=== PATIENT | female | born 2000 | race Caucasian/White ===

== ENCOUNTER 2019-07-19 13:26 | Emergency (ER) | payer OTHER, SELFPAY ==
[2019-07-19 13:42] VITALS: BP 124/83; PULSE 73; RESP 18; TEMP 36.6; O2SAT 97
--- NOTE | 2019-07-19 16:05 | PC.NURSE ---
pt states she sometimes feels bloated after eating recently as well.
--- NOTE | 2019-07-19 16:27 | ED.BACK ---
HPI - Back Pain/Injury <NATE Moses - Last Filed: 07/20/19 01:22> General Chief Complaint: Back Pain/Injury Stated Complaint: ongoing back problem for past month Time Seen by Provider: 07/19/19 16:06 Source: patient Mode of arrival: Ambulatory Limitations: no limitations History of Present Illness HPI Narrative: This is a 19-year-old female, nonsmoker, who presents with mother with chief complain of bilateral flank and back pain, L>R, with bilateral low abdominal pain for last month. Patient had seen her primary care physician 4 times for this and had x-ray and ultrasound done on upper abdomen and kidney according to the patient but is not sure what the results are. Patient had on appointment for a pelvic ultrasound today but she had started her menstrual period and canceled this and rescheduled for next week. Patient denies fever/chills, nausea/vomiting, changing in appetite, groin numbness, incontinence or weakness to lower extremities. Patient reports had constipation for previous 3 weeks but has been regulated and has been having bowel the ED. She feels her abdomen feels distended and bloated especially after eating. Patient recently was treated for UTI with antibiotic medication and had completed a course on Monday. Patient reports still has some dysuria and urinary frequency which improved. Patient had used omeprazole which has been helping with her upper abdominal discomfort. Patient reports her back pain is worse with movements such as flexion, extension, rotation. Patient was prescribed with muscle relaxant and was told to take Motrin as needed but she has been taking these medications for discomfort. Mother and patient are enquiring about MRI test for her symptoms. Related Data Home Medications Medication Instructions Recorded Confirmed omeprazole 20 mg PO DAILY 07/19/19 07/19/19 Allergies Allergy/AdvReac Type Severity Reaction Status Date / Time No Known Drug Allergies Allergy Verified 07/19/19 13:45 Review of Systems <NATE Moses - Last Filed: 07/20/19 01:22> Review of Systems Narrative: General: Denies fever, chills, fatigue, malaise, sweats. HEENT: Denies sinus pain, ear pain, sore throat, difficulty swallowing, dizziness. Respiratory: Denies dyspnea, cough, wheezing, hemoptysis, sputum. Cardiovascular: Denies chest pain, palpitations, orthopnea, edema. Gastrointestinal: See HPI : See HPI Musculoskeletal: See HPI Skin: Denies rash, skin lesions, or other. Neurologic: Denies weakness, headache, numbness, change in speech, confusion, seizures, incoordination. Psychiatric: No concerning psychosocial issues. 12-point review of systems is negative except for those stated above. PFSH <NATE Moses - Last Filed: 07/20/19 01:22> Social History Smoking Status: Never smoker Social History Smoking Status: Never smoker Exam <NATE Moses - Last Filed: 07/20/19 01:22> Narrative Exam Narrative: GEN: Alert, oriented x 3, well appearing and nourished, and in no acute distress. Head: Normal cephalic, atraumatic. No scalp or temporal tenderness, palpable mass or rash. EYES: Pupils are equal, round, and reactive to light and accommodation. Extraocular muscles are intact bilaterally. There is no subconjunctival hemorrhage, exudate and sclera non-icteric. ENT: Bilateral auditory canals and tympanic membranes clear. Hearing grossly intact. Nose without bleeding, purulent discharge or deviation. Facial sinuses nontender to palpate. Mucous membrane moist, no mucosal lesion. Throat without erythema, tonsillar hypertrophy or exudate. Uvula in midline, airway patent. Neck: Trachea in midline. No JVD, non-tender without lymphadenopathy. No masses or thyroid megaly. Supple, non-tender and no meningeal signs. CARDIAC: Normal regular rate and rhythm without murmurs, gallops, or rubs. No chest wall tenderness. No peripheral edema, cyanosis or pallor. Capillary refill is less than 2 seconds. RESPIRATORY: Lungs are cleat to auscultate bilaterally. No cough, wheezes, rales, or rhonchi. No stridor, respiratory distress, increase work of breathing, or accessary muscle used. ABD: Mild tenderness to palpate in low bilateral abdomen and suprapubic region. Abdomen soft and non-distended. No guarding or rebound tenderness to palpate. Bowel sounds are normal in all 4 quadrants. There is no palpable masses or organomegaly. EXT: Full painless ROM of all extremities with no loss of sensation, strength, effusion or edema. SKIN: Warm, dry, normal color for patient. No erythema, lesions or rash over visible areas or on bilateral low back. BACK: Tender to palpate mid and paraspinal region in low back Without deformity or crepitance. No flank tenderness. NEUROLOGICAL: Alert and oriented to place, time and person. Sensation and motor function intact bilaterally. No facial droops, dysphasia. PSYCHIATRIC: Good judgement and reason, without hallucinations, abnormal affect or abnormal behaviors during the examination. Initial Vital Signs Initial Vital Signs: Vital Signs Temperature 97.9 F 07/19/19 13:42 Pulse Rate 73 07/19/19 13:42 Respiratory Rate 18 07/19/19 13:42 Blood Pressure 124/83 07/19/19 13:42 Pulse Oximetry 97 07/19/19 13:42 <Luciano Fields DO - Last Filed: 07/20/19 09:10> Initial Vital Signs Initial Vital Signs: Vital Signs Temperature 97.9 F 07/19/19 13:42 Pulse Rate 73 07/19/19 13:42 Respiratory Rate 18 07/19/19 13:42 Blood Pressure 124/83 07/19/19 13:42 Pulse Oximetry 97 07/19/19 13:42 Scores <BLACK MosesP - Last Filed: 07/20/19 01:22> GCS Alpha coma scale eye opening: Spontaneous Mu coma scale verbal response: Orientated Alpha coma scale motor response: Obey commands Mu coma scale total score: 15 Course <BLACK MosesP - Last Filed: 07/20/19 01:22> Orders Ordered: ED Orders 07/19/19 17:07 Complete Blood Count AUTO DIFF Stat Comprehensive Metabolic Panel Stat Lipase Stat 07/19/19 18:19 CT abdomen pelvis w con Stat Vital Signs Vital signs: Vital Signs - 8 hr 07/19/19 20:00 Pulse Rate 51 L Respiratory Rate 14 Blood Pressure [Right Arm] 97/63 Pulse Oximetry 100 <Luciano Fields DO - Last Filed: 07/20/19 09:10> Orders Ordered: ED Orders 07/19/19 17:07 Complete Blood Count AUTO DIFF Stat Comprehensive Metabolic Panel Stat Lipase Stat 07/19/19 18:19 CT abdomen pelvis w con Stat Vital Signs Vital signs: Vital Signs - 8 hr 07/19/19 20:00 Pulse Rate 51 L Respiratory Rate 14 Blood Pressure [Right Arm] 97/63 Pulse Oximetry 100 MDM - Back Pain/Injury <Aristeo SalgueroNATE Denise - Last Filed: 07/20/19 01:22> Differential Diagnosis Differential diagnosis: Likely strain of lumbar region, renal colic, pyelonephritis and other (ovarian cyst, appendicitis, PID, ovarian torsion) Medical Records Attestation: I reviewed the patient's medical records. Lab Data Attestation: I reviewed the patient's lab results. Result diagrams: 07/19/19 17:07 07/19/19 17:07 Labs: Lab Results 07/19/19 07/19/19 Range/Units 17:07 17:07 WBC 12.9 H (4.5-11.0) X10^3/uL RBC 4.49 (4.0-5.2) X10^6/uL Hgb 13.4 (12.0-16.0) g/dL Hct 39.4 (36-46) % MCV 87.9 (80-100) fL MCH 29.8 (26-34) PG MCHC 33.9 (30-36) % RDW 12.6 (11.6-14.8) % Plt Count 288 (150-400) X10^3/uL Neut % (Auto) 76.4 H (50-75) % Lymph % (Auto) 17.0 L (25-40) % Robeson % (Auto) 5.2 (3-14) % Eos % (Auto) 0.9 L (2-4) % Baso % (Auto) 0.5 (0-2) % Neut # (Auto) 9900 H (2194-4834) /uL Lymph # (Auto) 2200 (8538-2238) /uL Robeson # (Auto) 700 (0-900) /uL Eos # (Auto) 100 (0-450) /uL Baso # (Auto) 100 (0-100) /uL Sodium 141 (137-145) mmol/L Potassium 3.6 (3.4-5.1) mmol/L Chloride 103 (98-107) mmol/L Carbon Dioxide 27 (22-32) mmol/L BUN 12 (7-17) mg/dL Creatinine 0.70 (0.52-1.04) mg/dL Estimated GFR > 60.0 (>60) mL/min BUN/Creatinine Ratio 17.1 (6-22) Glucose 89 (70-100) mg/dL Calcium 9.6 (8.4-10.2) mg/dL Total Bilirubin 0.9 (0.2-1.3) mg/dL AST 42 H (14-36) IU/L ALT 32 (9-52) IU/L Alkaline Phosphatase 40 (38-126) U/L Total Protein 8.0 (6.3-8.2) g/dL Albumin 5.0 (3.5-5.0) g/dL Globulin 3.0 (1.7-4.1) g/dL Albumin/Globulin Ratio 1.7 (1.0-2.8) Lipase 120 (23-300) U/L Point of Care Testing Test Results Negative Urine Dip Bedside Urine Glucose Negative Bedside Urine Bilirubin - Negative Bedside Urine Ketone - Negative Urine Specific [place]kin 1.015 Bedside Urine Occult Blood - Negative Bedside Urine pH 6 Bedside Urine Protein - Negative Bedside Urine Urobilinogen - Negative Bedside Urine Nitrite - Negative Bedside Urine Leukocytes - Negative Esterase Imaging Data CT-Abd/pelvis: Radiologist's impression: [place] [address] CT Scan Report Signed Patient: Liane Tolentino#: [id number] : 2000Acct:[id number] Age/Sex: 19 / FDate of Service: 07/19/19 Loc: ED Accession Number: [id number] Procedure: CT abdomen pelvis w con Ordering Provider: Aristeo Crawley PROCEDURE: CT ABDOMEN PELVIS W CON INDICATIONS: Low abdominal pain and flank pain TECHNIQUE: After the administration of intravenous contrast, 5 mm thick sections acquired from the diaphragm to the symphysis. 5 mm coronal and sagittal reformats were acquired. For radiation dose reduction, the following was used: automated exposure control, adjustment of mA and/or kV according to patient size. COMPARISON: None. FINDINGS: Image quality: Excellent. ABDOMEN: Lung bases: Lung bases are clear. Heart size is normal. Solid organs: Liver is normal in size and enhancement. Incidental note is made of focal fatty infiltration adjacent to the falciform ligament, which is not regarded to be pathologic. Gallbladder T12-L1: Normal appearance. . Biliary system is non dilated. Pancreas enhances normally. Spleen is normal in size and enhancement. No adrenal nodules. Kidneys demonstrate normal size and enhancement, without hydronephrosis. Peritoneum and bowel: Bowel loops demonstrate normal wall thickness and caliber. No free fluid or air. Nodes and vessels: No retroperitoneal or mesenteric adenopathy by size criteria. Aorta and inferior vena cava are normal in size. Miscellaneous: No ventral hernias. PELVIS: Genitourinary: Bladder wall thickness is normal. Tampon artifact is incidentally noted. Miscellaneous: No inguinal hernias or adenopathy. Bones: No suspicious bony lesions. No vertebral body compression fractures. IMPRESSION: No imaging explanation is found for this patient's presenting symptoms. Dictated by: Cosme Whitney M.D. on 07/19/2019 at 19:01 Approved by: Cosme Whitney M.D. on 07/19/2019 at 19:03 [facility] Narrative Medical decision making narrative: This is a 19-year-old, nontoxic-appearing female who presents with mother with chief complain of bilateral flank pain worse on the left side with bilateral low abdominal pain with a suprapubic pain for a month. Patient reports back pain is worsened with movements. Patient has been evaluated ongoing by her primary care physician at [facility] in [place]. She had ultrasound and x-ray test done in the past but the results are unavailable to us. However, patient had not informed with abnormal findings at this time. Patient reports her abdomen feels distended especially after eating and was prescribed with omeprazole which has been helping with her upper epigastric discomfort. Patient does not have constitutional symptoms, dizziness. She had started menstrual period today. She also had an UTI and had completed antibiotic medications 2 days ago but dysuria and urinary frequency has not completely resolved. The urine test today does not appears to be having UTI. The patient had pelvic ultrasound test scheduled today but she had rescheduled next week due to she started menstrual. Uhcg test was negative here. Patient's physical exam was benign, no CVA tenderness, abdomen was soft, nondistended, without peritoneal signs. Patient is afebrile w/o tachycardia. The chemistry and lipase tests were unremarkable. Patient had mildly elevated leukocytosis with neutrophil. CT of abdomen pelvis was ordered and indicates no acute findings in gallbladder, pancreas, spleen. No hydronephrosis, no compression fractures were seen. The lab and CT findings were shared with the patient and mother at bedside. Patient and mother informed that MRI test is not warrant at this time when patient does not have perineal anesthesia, incontinence, weakness or tingling numbness to lower extremities. Patient advised to take Tylenol and or Motrin with food as needed for discomfort. Continue to take omeprazole for gastric acid and discomfort. Advised to take muscle relaxant that she has prescribed at home. Patient declined pain medications a couple of times when offered due to pain not severe at this time. Patient advised to follow with pelvic ultrasound that is scheduled next week. Return precautions were discussed with the patient and advised to follow up with her primary care physician this coming week. Mother and patient agree with treatment plan and no further questions were expressed at this time. <Luciano Fields DO - Last Filed: 07/20/19 09:10> Lab Data Labs: Lab Results 07/19/19 07/19/19 Range/Units 17:07 17:07 WBC 12.9 H (4.5-11.0) X10^3/uL RBC 4.49 (4.0-5.2) X10^6/uL Hgb 13.4 (12.0-16.0) g/dL Hct 39.4 (36-46) % MCV 87.9 (80-100) fL MCH 29.8 (26-34) PG MCHC 33.9 (30-36) % RDW 12.6 (11.6-14.8) % Plt Count 288 (150-400) X10^3/uL Neut % (Auto) 76.4 H (50-75) % Lymph % (Auto) 17.0 L (25-40) % Robeson % (Auto) 5.2 (3-14) % Eos % (Auto) 0.9 L (2-4) % Baso % (Auto) 0.5 (0-2) % Neut # (Auto) 9900 H (0261-5977) /uL Lymph # (Auto) 2200 (9731-9179) /uL Robeson # (Auto) 700 (0-900) /uL Eos # (Auto) 100 (0-450) /uL Baso # (Auto) 100 (0-100) /uL Sodium 141 (137-145) mmol/L Potassium 3.6 (3.4-5.1) mmol/L Chloride 103 (98-107) mmol/L Carbon Dioxide 27 (22-32) mmol/L BUN 12 (7-17) mg/dL Creatinine 0.70 (0.52-1.04) mg/dL Estimated GFR > 60.0 (>60) mL/min BUN/Creatinine Ratio 17.1 (6-22) Glucose 89 (70-100) mg/dL Calcium 9.6 (8.4-10.2) mg/dL Total Bilirubin 0.9 (0.2-1.3) mg/dL AST 42 H (14-36) IU/L ALT 32 (9-52) IU/L Alkaline Phosphatase 40 (38-126) U/L Total Protein 8.0 (6.3-8.2) g/dL Albumin 5.0 (3.5-5.0) g/dL Globulin 3.0 (1.7-4.1) g/dL Albumin/Globulin Ratio 1.7 (1.0-2.8) Lipase 120 (23-300) U/L Point of Care Testing Test Results Negative Urine Dip Bedside Urine Glucose Negative Bedside Urine Bilirubin - Negative Bedside Urine Ketone - Negative Urine Specific [place] 1.015 Bedside Urine Occult Blood - Negative Bedside Urine pH 6 Bedside Urine Protein - Negative Bedside Urine Urobilinogen - Negative Bedside Urine Nitrite - Negative Bedside Urine Leukocytes - Negative Esterase Discharge Plan Departure Patient Disposition: Home Clinical Impression: Bilateral lower abdominal pain Low back pain Qualifiers: Chronicity: acute Back pain laterality: bilateral Sciatica presence: without sciatica Qualified Code(s): M54.5 - Low back pain Discharge Date/Time: 07/19/19 20:16 Instructions: DI for Low Back Pain, DI for Abdominal Pain-Adult Activity Restrictions/Additional Instructions: You have been diagnosed with [low abdominal pain and bilateral flank pain. The blood tests, urine tests, CT scan of abdomen pelvis were all unremarkable except the WBC was very mildly elevated]. What to do: *Take your medications as directed. Please take [id number] Tylenol and or Motrin as needed for discomfort. Take muscle relaxants and night for discomfort and muscle spasm as you're provider prescribed. Please continue with her pelvic ultrasound next week as scheduled. *Follow up with your primary care provider in 2-3 days, call for an appointment. Let them know you were seen in the ED and that we asked you to be seen in follow up. *Return to ED if you have any new, worsening, or concerning symptoms, such as [fever, worsening discomfort, unable to tolerate fluids, chest pain, breathing difficulty, fainting like episode, or any acute concerns]. Prescriptions: No Action omeprazole 20 mg Capsule,Delayed Release(Dr/Ec) 20 mg PO DAILY RF: 0
[2019-07-19 17:27] LABS: Add Manual Diff / Slide Review NO; Basophils Absolute Auto 100 /uL (0-100); Basophils Percent Auto 0.5 % (0-2); Eosinophils Absolute Auto 100 /uL (0-450); Eosinophils Percent Auto 0.9 % (2-4); Hematocrit 39.4 % (36-46); Hemoglobin 13.4 g/dL (12.0-16.0); Lymphocytes Absolute Auto 2200 /uL (1100-4500); Mean Corpuscular HGB Conc 33.9 % (30-36); Mean Corpuscular Hemoglobin 29.8 PG (26-34); Mean Corpuscular Volume 87.9 fL (80-100); Monocytes Absolute Auto 700 /uL (0-900); Monocytes Percent Auto 5.2 % (3-14); Neutrophils Absolute Auto 9900 /uL (1500-7000); Neutrophils Percent Auto 76.4 % (50-75); Platelet Count 288 X10^3/uL (150-400); Red Blood Cell Count 4.49 X10^6/uL (4.0-5.2); Red Cell Distribution Width 12.6 % (11.6-14.8); White Blood Cell Count 12.9 X10^3/uL (4.5-11.0)
[2019-07-19 17:39] LABS: Alanine Aminotransferase 32 IU/L (9-52); Albumin Globulin Ratio 1.7 (1.0-2.8); Alkaline Phosphatase 40 U/L (38-126); Aspartate Aminotransferase 42 IU/L (14-36); BUN Creatinine Ratio 17.1 (6-22); Bilirubin Total 0.9 mg/dL (0.2-1.3); Blood Urea Nitrogen 12 mg/dL (7-17); Calcium 9.6 mg/dL (8.4-10.2); Carbon Dioxide 27 mmol/L (22-32); Chloride 103 mmol/L (98-107); Estimated Glomerular Filt Rate > 60.0 mL/min (>60); Glucose 89 mg/dL (70-100); HEMOLYSIS < 15 (0-50); Lipase 120 U/L (23-300); Potassium 3.6 mmol/L (3.4-5.1); Sodium 141 mmol/L (137-145)
--- NOTE | 2019-07-19 18:19 | DI.CT.S_ITS ---
PROCEDURE: CT ABDOMEN PELVIS W CON INDICATIONS: Low abdominal pain and flank pain TECHNIQUE: After the administration of intravenous contrast, 5 mm thick sections acquired from the diaphragm to the symphysis. 5 mm coronal and sagittal reformats were acquired. For radiation dose reduction, the following was used: automated exposure control, adjustment of mA and/or kV according to patient size. COMPARISON: None. FINDINGS: Image quality: Excellent. ABDOMEN: Lung bases: Lung bases are clear. Heart size is normal. Solid organs: Liver is normal in size and enhancement. Incidental note is made of focal fatty infiltration adjacent to the falciform ligament, which is not regarded to be pathologic. Gallbladder T12-L1: Normal appearance. . Biliary system is non dilated. Pancreas enhances normally. Spleen is normal in size and enhancement. No adrenal nodules. Kidneys demonstrate normal size and enhancement, without hydronephrosis. Peritoneum and bowel: Bowel loops demonstrate normal wall thickness and caliber. No free fluid or air. Nodes and vessels: No retroperitoneal or mesenteric adenopathy by size criteria. Aorta and inferior vena cava are normal in size. Miscellaneous: No ventral hernias. PELVIS: Genitourinary: Bladder wall thickness is normal. Tampon artifact is incidentally noted. Miscellaneous: No inguinal hernias or adenopathy. Bones: No suspicious bony lesions. No vertebral body compression fractures. IMPRESSION: No imaging explanation is found for this patient's presenting symptoms. Dictated by: Cosme Whitney M.D. on 07/19/2019 at 19:01 Approved by: Cosme Whitney M.D. on 07/19/2019 at 19:03
[2019-07-19 20:00] VITALS: BP 97/63; PULSE 51; RESP 14; O2SAT 100
== END 2019-07-19 20:16 | disposition home or self-care (01) ==
PROVIDERS: Emergency Provider Nurse Practitioner Family
DX: R10.30 Lower abdominal pain, unspecified (principal); M54.5 Low back pain
CPT/HCPCS: 36591; 74177; 80053; 81003; 81025; 83690; 85025; 99282; 99285; Q9967

== ENCOUNTER → 2020-02-07 09:48 | Outpatient (CLI) | payer OTHER, SELFPAY ==
[2020-02-07 09:57] LABS: Bacteria Urine None Seen; RBC Urine None Seen (0-5/HPF); WBC Urine None Seen (0-5/HPF)
[2020-02-07 10:36] LABS: Appearance Urine UA CLEAR; Bilirubin Urine UA NEGATIVE (NEGATIVE); Color Urine UA YELLOW; Glucose Urine UA NEGATIVE (Negative); Ketones Urine UA NEGATIVE (NEGATIVE); Leukocyte Esterase Urine UA NEGATIVE (NEGATIVE); Nitrite Urine UA NEGATIVE (Negative); Occult Blood Urine UA NEGATIVE (Negative); Protein Urine UA NEGATIVE (Negative); Urobilinogen Urine UA 0.2 E.U./dL (0.2)
[2020-02-07 10:37] LABS: Pregnancy Test Urine Negative (Negative)
[2020-02-07 10:38] LABS: Add Manual Diff / Slide Review NO; Basophils Absolute Auto 100 /uL (0-100); Basophils Percent Auto 0.8 % (0-2); Eosinophils Absolute Auto 200 /uL (0-450); Eosinophils Percent Auto 2.1 % (2-4); Hematocrit 36.7 % (36-46); Hemoglobin 12.8 g/dL (12.0-16.0); Lymphocytes Absolute Auto 2500 /uL (1100-4500); Lymphocytes Percent Auto 30.7 % (25-40); Mean Corpuscular HGB Conc 34.9 % (30-36); Mean Corpuscular Volume 88.8 fL (80-100); Monocytes Absolute Auto 500 /uL (0-900); Monocytes Percent Auto 6.5 % (3-14); Neutrophils Absolute Auto 4800 /uL (1500-7000); Neutrophils Percent Auto 59.9 % (50-75); Platelet Count 279 X10^3/uL (150-400); Red Blood Cell Count 4.14 X10^6/uL (4.0-5.2); Red Cell Distribution Width 12.6 % (11.6-14.8); White Blood Cell Count 8.1 X10^3/uL (4.5-11.0)
[2020-02-07 11:38] LABS: Culture Indicated Urine Cult Not Indicated; Urine Comments Microscopic Normal
[2020-02-07 11:44] LABS: Alanine Aminotransferase 21 IU/L (<35); Albumin 4.3 g/dL (3.5-5.0); Albumin Globulin Ratio 1.5 (1.0-2.8); Alkaline Phosphatase 37 U/L (38-126); Aspartate Aminotransferase 29 IU/L (14-36); BUN Creatinine Ratio 11.8 (6-22); Bilirubin Total 0.6 mg/dL (0.2-1.3); Blood Urea Nitrogen 8 mg/dL (7-17); Calcium 9.3 mg/dL (8.4-10.2); Carbon Dioxide 27 mmol/L (22-32); Chloride 106 mmol/L (98-107); Estimated Glomerular Filt Rate > 60.0 mL/min (>60); Globulin 2.8 g/dL (1.7-4.1); Glucose 87 mg/dL (70-100); HEMOLYSIS < 15 (0-50); Potassium 3.8 mmol/L (3.4-5.1); Sodium 140 mmol/L (137-145); Total Protein 7.1 g/dL (6.3-8.2)
[2020-02-07 12:43] LABS: Folate 12.6 ng/mL (2.76-20.0); Vitamin B12 286 pg/mL (239-931)
== END ==
PROVIDERS: PCP Nurse Practitioner Family; Referring Provider Nurse Practitioner Family; Visit Provider Nurse Practitioner Family
DX: Z00.00 Encounter for general adult medical examination without abnormal findings (principal); F41.9 Anxiety disorder, unspecified; K58.9 Irritable bowel syndrome, unspecified; R10.9 Unspecified abdominal pain
CPT/HCPCS: 36415; 80053; 81001; 81025; 82607; 82746; 84443; 85025

== ENCOUNTER → 2020-04-01 09:40 | Outpatient (CLI) | payer OTHER, SELFPAY ==
[2020-04-01 11:28] LABS: Hematocrit 36.8 % (36-46); Hemoglobin 12.8 g/dL (12.0-16.0); Mean Corpuscular HGB Conc 34.9 % (30-36); Mean Corpuscular Hemoglobin 31.1 PG (26-34); Mean Corpuscular Volume 89.3 fL (80-100); Platelet Count 260 X10^3/uL (150-400); Red Blood Cell Count 4.12 X10^6/uL (4.0-5.2); Red Cell Distribution Width 13.1 % (11.6-14.8); White Blood Cell Count 7.1 X10^3/uL (4.5-11.0)
[2020-04-01 11:45] LABS: Monotest Negative (Negative)
== END ==
PROVIDERS: PCP Nurse Practitioner Family; Referring Provider Nurse Practitioner Family; Visit Provider Nurse Practitioner Family
DX: R53.83 Other fatigue (principal); R59.1 Generalized enlarged lymph nodes
CPT/HCPCS: 36415; 85027; 86318

== ENCOUNTER 2020-04-06 16:29 | Emergency (ER) | payer OTHER, SELFPAY ==
[2020-04-06 16:47] VITALS: BP 126/75; PULSE 82; RESP 14; TEMP 36.7; O2SAT 100; BMI 21.7
--- NOTE | 2020-04-06 17:12 | PC.NURSE ---
pt currently on ABX for potential pelvic infection, states has been on oral meds since appt but not improving. Denies vaginal discharge. Reports sense of urgency but difficulty emptying bladder
[2020-04-06] MEDS: PHENAZOPYRIDINE 100 MG TABLET 200 MG PO (17:33)
[2020-04-06 18:14] LABS: Add Manual Diff / Slide Review NO; Basophils Absolute Auto 0 /uL (0-100); Basophils Percent Auto 0.4 % (0-2); Eosinophils Absolute Auto 100 /uL (0-450); Eosinophils Percent Auto 0.8 % (2-4); Hematocrit 35.5 % (36-46); Hemoglobin 12.4 g/dL (12.0-16.0); Lymphocytes Absolute Auto 2200 /uL (1100-4500); Lymphocytes Percent Auto 25.8 % (25-40); Mean Corpuscular HGB Conc 34.9 % (30-36); Mean Corpuscular Volume 88.7 fL (80-100); Monocytes Absolute Auto 500 /uL (0-900); Monocytes Percent Auto 5.6 % (3-14); Neutrophils Absolute Auto 5700 /uL (1500-7000); Neutrophils Percent Auto 67.4 % (50-75); Platelet Count 250 X10^3/uL (150-400); Red Blood Cell Count 4.01 X10^6/uL (4.0-5.2); Red Cell Distribution Width 12.4 % (11.6-14.8); White Blood Cell Count 8.4 X10^3/uL (4.5-11.0)
[2020-04-06 18:27] LABS: BUN Creatinine Ratio 10.9 (6-22); Blood Urea Nitrogen 7 mg/dL (7-17); Calcium 9.5 mg/dL (8.4-10.2); Carbon Dioxide 31 mmol/L (22-32); Chloride 103 mmol/L (98-107); Estimated Glomerular Filt Rate > 60.0 mL/min (>60); Glucose 78 mg/dL (70-100); HEMOLYSIS < 15 (0-50); Potassium 3.8 mmol/L (3.4-5.1); Sodium 138 mmol/L (137-145)
[2020-04-06 18:28] LABS: Lactate (Lactic Acid) < 0.5 mmol/L (0.7-2.1)
[2020-04-06 18:47] LABS: Procalcitonin < 0.05 ng/mL (<0.5)
[2020-04-06 19:39] VITALS: BP 124/72; PULSE 76; RESP 12; O2SAT 100
--- NOTE | 2020-04-06 23:30 | ED_ITS ---
HPI - Female Genitourinary <NATE Moses - Last Filed: 04/06/20 23:52> General Chief complaint: Urogenital-Female Stated complaint: difficulty urinating 1x month worsening Time Seen by Provider: 04/06/20 16:53 Source: patient and family Mode of arrival: Ambulatory Limitations: no limitations History of Present Illness HPI Narrative: This is a 20 year female, nonsmoker, who presents to ED with mother with chief complain of urinary frequency, painful urination and discomfort to empty bladder completely. Frequently patient feels incomplete bladder and thing after the urination. Patient also reports bilateral flank pain. Mother reports patient had chills with severe discomfort last night. She denies fever, nausea, vomiting. Patient reports dull aches and hot sensation in lower abdomen, chronic bloatedness and sharp discomfort in urethral. Seen in June 2019 in ED with similar symptoms and reports her symptoms have not resolved completely. Patient had negative abdominal and pelvis CT for acute findings at that time. At that time was urine test was negative for infection and . Patient reports she had a few ultrasound test done at [facility] with no significant findings but ovarian cyst and small fluid in pelvic duration. Patient was seen a week ago by her primary care physician and PEs and also by Dr. Carrasco and received treatment with IM Rocephin injection and was discharged to home with 2 week course of antibiotic medication doxycycline for possible pelvic infection. At that time, urine test was negative for infection. Related Data Previous Rx's Medication Instructions Recorded amitriptyline 10 mg tablet 20 mg PO DAILY #60 tab 11/26/19 paroxetine HCl 10 mg tablet 10 mg PO DAILY #90 tab 02/07/20 levonorgestrel-ethinyl estradiol See Rx Instructions PO .COMPLEX 03/18/20 0.1 mg-20 mcg tablet #84 tab ceftriaxone 250 mg solution for 250 mg IM ONCE #1 each 04/01/20 injection doxycycline hyclate 100 mg capsule 100 mg PO BID 14 Days #28 cap 04/01/20 fluconazole 150 mg tablet 150 mg PO ONCE #1 tab 04/01/20 phenazopyridine [Pyridium] 200 mg PO Q8H PRN #6 tab 04/06/20 Allergies Allergy/AdvReac Type Severity Reaction Status Date / Time No Known Drug Allergies Allergy Verified 04/06/20 16:53 Review of Systems <NATE Moses - Last Filed: 04/06/20 23:52> Review of Systems Narrative: General: See HPI HEENT: Denies sinus pain, ear pain, sore throat, difficulty swallowing, dizziness. Respiratory: Denies dyspnea, cough, wheezing, hemoptysis, sputum. Cardiovascular: Denies chest pain, palpitations, orthopnea, edema. Gastrointestinal: Denies nausea, vomiting, abdominal pain, diarrhea, constipation, melena. : See HPI Musculoskeletal: Denies weakness, joint pain or bony pain, (+) bilateral flank pain. Skin: Denies rash, skin lesions, or other. Neurologic: Denies weakness, headache, numbness, change in speech, confusion, seizures, incoordination. Psychiatric: No concerning psychosocial issues. 12-point review of systems is negative except for those stated above. Patient History <NATE Moses - Last Filed: 04/06/20 23:52> Medical History Anxiety (Chronic ~2013) Depression (Chronic ~2013) Fatigue (Acute) Foot pain (Chronic ~2017) Generalized anxiety disorder (Acute) IBS (irritable bowel syndrome) (Acute) Lymphadenopathy (Acute) PCOS (polycystic ovarian syndrome) (Acute) Plantar warts (Inactive ~2008) Surgical History Anesthesia (Resolved) History of appendectomy (Resolved ~2008) Family History Father Hypertension Mental health problem Mother Mental health problem Breast cancer Sister Mental health problem Smoking Status: Never smoker alcohol intake frequency: 0-2 drinks per day Substance Use Type: does not use Exam <NATE Moses - Last Filed: 04/06/20 23:52> Narrative Exam Narrative: General appearance: well developed, well nourished, in no acute distress. Head: normocephalic, atraumatic, no scalp lesions, non-tender. ENT: Hearing grossly intact. Nose without bleeding, purulent discharge. Airway patent. Neck/Thyroid: neck supple, full range of motion, no visible masses or meningeal signs. No JVD, non-tender without lymphadenopathy. Skin: no suspicious rashes, lesions over visible areas. Warm and dry and appropriate color for ethnicity. Heart: no clubbing, no cyanosis, no edema. Lungs: Breathing even and unlabored. No stridor. No accessory muscles used. Able to speak in full sentences. Chest: normal shape and expansion. Abdomen: non-obese, non-distended. Neurologic: alert and oriented. Cognitive exam, NEONATAL CRITICAL CARE NURSE and PNS grossly intact on informal exam. Psych: good eye contact, normal affect. Initial Vital Signs Initial Vital Signs: Vital Signs Temperature 98.1 F 04/06/20 16:47 Pulse Rate 82 04/06/20 16:47 Respiratory Rate 14 04/06/20 16:47 Blood Pressure 126/75 04/06/20 16:47 Pulse Oximetry 100 04/06/20 16:47 <Aki Shell DO - Last Filed: 04/07/20 08:11> Initial Vital Signs Initial Vital Signs: Vital Signs Temperature 98.1 F 04/06/20 16:47 Pulse Rate 82 04/06/20 16:47 Respiratory Rate 14 04/06/20 16:47 Blood Pressure 126/75 04/06/20 16:47 Pulse Oximetry 100 04/06/20 16:47 Scores <NATE Moses - Last Filed: 04/06/20 23:52> GCS Bronson coma scale eye opening: Spontaneous Bronson coma scale verbal response: Orientated Bronson coma scale motor response: Obey commands Mu coma scale total score: 15 Course <NATE Moses - Last Filed: 04/06/20 23:52> Orders Ordered: Discontinued Medications Phenazopyridine HCl (Pyridium) 200 mg PO NOW ONE Stop: 04/06/20 17:25 Last Admin: 04/06/20 17:33 Dose: 200 mg Documented by: MONICA Vital Signs Vital signs: Vital Signs - 8 hr 04/06/20 16:47 04/06/20 19:39 Temperature 98.1 F Pulse Rate 82 76 Respiratory Rate 14 12 Blood Pressure 126/75 124/72 Pulse Oximetry 100 100 <DO Rony Crump Last Filed: 04/07/20 08:11> Orders Ordered: Discontinued Medications Phenazopyridine HCl (Pyridium) 200 mg PO NOW ONE Stop: 04/06/20 17:25 Last Admin: 04/06/20 17:33 Dose: 200 mg Documented by: MONICA Vital Signs Vital signs: Vital Signs - 8 hr 04/06/20 16:47 04/06/20 19:39 Temperature 98.1 F Pulse Rate 82 76 Respiratory Rate 14 12 Blood Pressure 126/75 124/72 Pulse Oximetry 100 100 MDM - Female Genitourinary <NATE Moses - Last Filed: 04/06/20 23:52> Differential Diagnosis Differential diagnosis: Likely urinary tract infection and other (Dysuria, kidney infection, interstitial cystitis) Medical Records Attestation: I reviewed the patient's medical records. Lab Data Attestation: I reviewed the patient's lab results. Result diagrams: 04/06/20 18:06 04/06/20 18:06 Labs: Lab Results 04/06/20 04/06/20 04/06/20 Range/Units 18:06 18:06 18:06 WBC 8.4 (4.5-11.0) X10^3/uL RBC 4.01 (4.0-5.2) X10^6/uL Hgb 12.4 (12.0-16.0) g/dL Hct 35.5 L (36-46) % MCV 88.7 (80-100) fL MCH 31.0 (26-34) PG MCHC 34.9 (30-36) % RDW 12.4 (11.6-14.8) % Plt Count 250 (150-400) X10^3/uL Neut % (Auto) 67.4 (50-75) % Lymph % (Auto) 25.8 (25-40) % [place] % (Auto) 5.6 (3-14) % Eos % (Auto) 0.8 L (2-4) % Baso % (Auto) 0.4 (0-2) % Neut # (Auto) 5700 (3001-5921) /uL Lymph # (Auto) 2200 (8756-6384) /uL [place] # (Auto) 500 (0-900) /uL Eos # (Auto) 100 (0-450) /uL Baso # (Auto) 0 (0-100) /uL Sodium 138 (137-145) mmol/L Potassium 3.8 (3.4-5.1) mmol/L Chloride 103 (98-107) mmol/L Carbon Dioxide 31 (22-32) mmol/L BUN 7 (7-17) mg/dL Creatinine 0.64 (0.52-1.04) mg/dL Estimated GFR > 60.0 (>60) mL/min BUN/Creatinine Ratio 10.9 (6-22) Glucose 78 (70-100) mg/dL Lactate (0.7-2.1) mmol/L Calcium 9.5 (8.4-10.2) mg/dL Procalcitonin < 0.05 (<0.5) ng/mL 04/06/20 Range/Units 18:06 WBC (4.5-11.0) X10^3/uL RBC (4.0-5.2) X10^6/uL Hgb (12.0-16.0) g/dL Hct (36-46) % MCV (80-100) fL MCH (26-34) PG MCHC (30-36) % RDW (11.6-14.8) % Plt Count (150-400) X10^3/uL Neut % (Auto) (50-75) % Lymph % (Auto) (25-40) % [place] % (Auto) (3-14) % Eos % (Auto) (2-4) % Baso % (Auto) (0-2) % Neut # (Auto) (0521-1399) /uL Lymph # (Auto) (8280-0229) /uL [place] # (Auto) (0-900) /uL Eos # (Auto) (0-450) /uL Baso # (Auto) (0-100) /uL Sodium (137-145) mmol/L Potassium (3.4-5.1) mmol/L Chloride (98-107) mmol/L Carbon Dioxide (22-32) mmol/L BUN (7-17) mg/dL Creatinine (0.52-1.04) mg/dL Estimated GFR (>60) mL/min BUN/Creatinine Ratio (6-22) Glucose (70-100) mg/dL Lactate < 0.5 L (0.7-2.1) mmol/L Calcium (8.4-10.2) mg/dL Procalcitonin (<0.5) ng/mL Point of Care Testing Test Results Negative Urine Dip Bedside Urine Glucose Negative Bedside Urine Bilirubin - Negative Bedside Urine Ketone +/- 5 Urine Specific [place] 1.010 Bedside Urine Occult Blood - Negative Bedside Urine pH 6.5 Bedside Urine Protein - Negative Bedside Urine Urobilinogen - Negative Bedside Urine Nitrite - Negative Bedside Urine Leukocytes - Negative Esterase MDM Narrative Medical decision making narrative: Urine test is negative for infection and negative test. No leukocytosis. Normal kidney function test with unremarkable chemistry test. Lactate and procalcitonin test was within normal limits. Patient is afebrile and normal heart rate and respiration with normotensive. Bladder scan was completed pre and post. After void, indicated patient had about 45 mL of urine in bladder. Pelvic exam was deferred since patient was evaluated by manager case specialist a week ago with Pap smear and pelvic exam. Additional imaging test was deferred with normal lab tests and patient's chief complain is dysuria with normal imaging tests in the past. Patient medicated with Pyridium in ED and discharged to home for as needed dose for next couple of days. Patient advised to use [id number] Tylenol Motrin as needed for discomfort. After patient completes antibiotic medication treatment, to with manager case specialist and advised to follow-up with urologist if her symptoms persists and provided Dr. Stanley information. Advised to follow with primary care physician as well and return precautions were discussed patient and mother. They both verbalized understanding and agreed treatment plan. <Aki Shell, DO - Last Filed: 04/07/20 08:11> Lab Data Labs: Lab Results 04/06/20 04/06/20 04/06/20 Range/Units 18:06 18:06 18:06 WBC 8.4 (4.5-11.0) X10^3/uL RBC 4.01 (4.0-5.2) X10^6/uL Hgb 12.4 (12.0-16.0) g/dL Hct 35.5 L (36-46) % MCV 88.7 (80-100) fL MCH 31.0 (26-34) PG MCHC 34.9 (30-36) % RDW 12.4 (11.6-14.8) % Plt Count 250 (150-400) X10^3/uL Neut % (Auto) 67.4 (50-75) % Lymph % (Auto) 25.8 (25-40) % [place] % (Auto) 5.6 (3-14) % Eos % (Auto) 0.8 L (2-4) % Baso % (Auto) 0.4 (0-2) % Neut # (Auto) 5700 (7841-1766) /uL Lymph # (Auto) 2200 (5737-0555) /uL [place] # (Auto) 500 (0-900) /uL Eos # (Auto) 100 (0-450) /uL Baso # (Auto) 0 (0-100) /uL Sodium 138 (137-145) mmol/L Potassium 3.8 (3.4-5.1) mmol/L Chloride 103 (98-107) mmol/L Carbon Dioxide 31 (22-32) mmol/L BUN 7 (7-17) mg/dL Creatinine 0.64 (0.52-1.04) mg/dL Estimated GFR > 60.0 (>60) mL/min BUN/Creatinine Ratio 10.9 (6-22) Glucose 78 (70-100) mg/dL Lactate (0.7-2.1) mmol/L Calcium 9.5 (8.4-10.2) mg/dL Procalcitonin < 0.05 (<0.5) ng/mL 04/06/20 Range/Units 18:06 WBC (4.5-11.0) X10^3/uL RBC (4.0-5.2) X10^6/uL Hgb (12.0-16.0) g/dL Hct (36-46) % MCV (80-100) fL MCH (26-34) PG MCHC (30-36) % RDW (11.6-14.8) % Plt Count (150-400) X10^3/uL Neut % (Auto) (50-75) % Lymph % (Auto) (25-40) % [place] % (Auto) (3-14) % Eos % (Auto) (2-4) % Baso % (Auto) (0-2) % Neut # (Auto) (0422-0412) /uL Lymph # (Auto) (5803-2644) /uL [place] # (Auto) (0-900) /uL Eos # (Auto) (0-450) /uL Baso # (Auto) (0-100) /uL Sodium (137-145) mmol/L Potassium (3.4-5.1) mmol/L Chloride (98-107) mmol/L Carbon Dioxide (22-32) mmol/L BUN (7-17) mg/dL Creatinine (0.52-1.04) mg/dL Estimated GFR (>60) mL/min BUN/Creatinine Ratio (6-22) Glucose (70-100) mg/dL Lactate < 0.5 L (0.7-2.1) mmol/L Calcium (8.4-10.2) mg/dL Procalcitonin (<0.5) ng/mL Point of Care Testing Test Results Negative Urine Dip Bedside Urine Glucose Negative Bedside Urine Bilirubin - Negative Bedside Urine Ketone +/- 5 Urine Specific [place] 1.010 Bedside Urine Occult Blood - Negative Bedside Urine pH 6.5 Bedside Urine Protein - Negative Bedside Urine Urobilinogen - Negative Bedside Urine Nitrite - Negative Bedside Urine Leukocytes - Negative Esterase Discharge Plan Departure Patient Disposition: Home Clinical Impression: Dysuria Discharge Date/Time: 04/06/20 19:40 Instructions: DI for Dysuria -- Adult Activity Restrictions/Additional Instructions: You have been diagnosed with [dysuria. Lab test for CBC, chemistry test, lactate, procalcitonin, urine tests were assuring and normal.]. What to do: *Take your medications as directed. Take Pyridium as needed total of 6 doses as needed for discomfort with urination. We can also take Tylenol and or Motrin as needed for discomfort. *Follow up with your primary care provider in 2-3 days, call for an appointment. Please follow up with manager case provider after completion of antibiotic medication if you continue to have symptoms. Let them know you were seen in the ED and that we asked you to be seen in follow up. *Return to ED if you have any new, worsening, or concerning symptoms, such as [fever increased pain unable to tolerate fluids chest pain, breathing difficulty, increasing urinary symptoms or any acute concerns]. Prescriptions: New phenazopyridine [Pyridium] 200 mg tablet 200 mg PO Q8H PRN (Reason: pain) Qty: 6 RF: 0 No Action amitriptyline 10 mg tablet 20 mg PO DAILY Qty: 60 RF: 2 paroxetine HCl [Paxil] 10 mg tablet 10 mg PO DAILY Qty: 90 RF: 1 levonorgestrel-ethinyl estrad 0.1-20 mg-mcg tablet See Rx Instructions PO .COMPLEX Qty: 84 RF: 3 ceftriaxone 250 mg recon soln 250 mg IM ONCE Qty: 1 RF: 0 doxycycline hyclate 100 mg capsule 100 mg PO BID 14 Days Qty: 28 RF: 0 fluconazole 150 mg tablet 150 mg PO ONCE Qty: 1 RF: 1 Referrals: Katy Ramirez ARNP [Primary Care Provider] - Zion Stanley MD [Physician] - <Aki Shell DO - Last Filed: 04/07/20 08:11> Cosign ED Attending Cosignature Attestation: Dr Shell Co-Sign Statement: I was available for consultation during this patient's emergency department visit. This chart is signed by myself for administrative purposes only. I did not have direct contact with this patient during this visit. They were seen independently by the APC.
== END 2020-04-06 19:40 | disposition home or self-care (01) ==
PROVIDERS: Emergency Provider Nurse Practitioner Family; PCP Nurse Practitioner Family
DX: R30.0 Dysuria (principal); R35.0 Frequency of micturition
CPT/HCPCS: 36415; 51798; 80048; 81003; 81025; 83605; 84145; 85025; 99283; 99284

== ENCOUNTER → 2020-06-17 15:42 | Outpatient (CLI) | payer OTHER, SELFPAY | PROVIDERS: PCP Nurse Practitioner Family; Referring Provider Nurse Practitioner Family; Visit Provider Nurse Practitioner Family | DX: Z83.49 Family history of other endocrine, nutritional and metabolic diseases (principal) | CPT/HCPCS: 36415; 84443 ==

== ENCOUNTER → 2020-07-21 15:27 | Outpatient (CLI) | payer OTHER, SELFPAY ==
[2020-07-22 14:12] LABS: COVID19 Sendout Not Detected (Not Detect)
== END ==
PROVIDERS: PCP Nurse Practitioner Family; Visit Provider Physician Assistant
DX: Z11.59 Encounter for screening for other viral diseases (principal)
CPT/HCPCS: 87635

== ENCOUNTER → 2020-12-01 09:06 | Outpatient (CLI) | payer OTHER, SELFPAY ==
[2020-12-01 09:32] LABS: COVID19 -Nasal RAPID Negative (Negative)
== END ==
PROVIDERS: PCP Nurse Practitioner Family; Visit Provider Nurse Practitioner Family
DX: M79.10 Myalgia, unspecified site (principal); R05 Cough; R06.02 Shortness of breath; R07.89 Other chest pain; R09.89 Other specified symptoms and signs involving the circulatory and respiratory systems; R51.9 Headache, unspecified; Z20.822 Contact with and (suspected) exposure to COVID-19
CPT/HCPCS: 87635

== ENCOUNTER → 2022-07-28 11:29 | Outpatient (CLI) | payer OTHER, SELFPAY ==
[2022-08-02 07:36] LABS: Chlamydia trachomatis Positive (Negative); Mycoplasma genitalium Negative (Negative); Neisseria gonorrhoeae Negative (Negative)
== END ==
PROVIDERS: PCP Nurse Practitioner Family; Visit Provider Obstetrics & Gynecology
DX: N93.9 Abnormal uterine and vaginal bleeding, unspecified (principal); Z11.3 Encounter for screening for infections with a predominantly sexual mode of transmission
CPT/HCPCS: 87491; 87563; 87591

== ENCOUNTER → 2022-08-09 08:46 | Outpatient (CLI) | payer OTHER, SELFPAY ==
--- NOTE | 2022-08-09 08:47 | DI.US.S_ITS ---
PROCEDURE: US PELVIC COMPLETE INDICATIONS: Heavy bleeding TECHNIQUE: Real-time scanning was performed of the pelvic organs, with image documentation. Additional endovaginal scanning was necessary due to incomplete visualization of the adnexal and endometrial structures by transabdominal scanning. COMPARISON: [facility], CT, CT ABDOMEN PELVIS W CON, 07/19/2019, 18:37. FINDINGS: Uterus: Uterus is dynamic/retroverted and normal in size at 7.4 x 3.7 x 4.2 cm. The myometrium is homogeneous. The endometrium measures 14 mm combined thickness. The endometrial stripe demonstrates a heterogeneous appearance, with complex nonvascular fluid within it. There is fluid/debris also seen within the level of the cervix. Ovaries: The right ovary measures 3.6 x 1.8 x 3.2 cm, with a calculated ovarian volume of 10.7 cc. The left ovary measures 3.5 x 2.2 x 2.9 cm, with a calculated ovarian volume of 11.7 cc. The ovaries have a normal sonographic appearance. More than 12 follicles can be seen in each ovary. No adnexal masses are seen. Normal appearing arterial waveforms are confirmed to each ovary. Other: A mild amount of free pelvic fluid is seen, which is considered to be within physiologic limits. Is IMPRESSION: Irregular endometrial stripe, with complex nonvascular fluid seen within it. More than 12 follicles can be seen involving each ovary, which is consistent with polycystic ovarian syndrome. We strive to produce accurate, complete, and clear reports of imaging services. To assist us in improving patient care, this report was composed using standard report templates and voice recognition software. Therefore, it may contain abnormal punctuation, insertions and/or omissions. Occasional wrong-word or sound-alike substitutions may occur. Though we review the report and make efforts to correct it, we do recommend that the report be read carefully in proper context to recognize any text inaccuracies. Dictated by: Cosme Whitney M.D. on 08/09/2022 at 9:49 Approved by: Cosme Whitney M.D. on 08/09/2022 at 9:51
== END ==
PROVIDERS: PCP Nurse Practitioner Family; Referring Provider Obstetrics & Gynecology; Visit Provider Obstetrics & Gynecology
DX: N92.0 Excessive and frequent menstruation with regular cycle (principal); E28.2 Polycystic ovarian syndrome
CPT/HCPCS: 76830; 76856

== ENCOUNTER 2023-08-15 20:10 | Emergency (ER) | payer OTHER, SELFPAY ==
[2023-08-15 20:14] VITALS: BP 130/70; PULSE 112; RESP 20; TEMP 37.3; O2SAT 100; BMI 24.2
[2023-08-15 20:31] VITALS: BP 128/73; PULSE 104; RESP 22; TEMP 37.2; O2SAT 98
--- NOTE | 2023-08-15 20:45 | ED.CHESTPAIN ---
HPI - Chest Pain General Chief Complaint: Upper Respiratory Symptoms Stated Complaint: CHEST PAIN, SHORT OF BREATH Time Seen by Provider: 08/15/23 20:14 Source: family Mode of arrival: Ambulatory Limitations: no limitations History of Present Illness HPI narrative: 23-year-old female daily smoker with history of PCOS and IBS as well as anxiety and depression presents with a chief complaint of being sick for about 1 month. She is had cough, runny nose, nasal congestion, nausea about an hour ago she started developing left-sided chest pain that is sharp and stabbing that seems to be worse with deep breath and cough. Related Data Home Medications Medication Instructions Recorded Confirmed dextroamphetamine-amphetamine ER 20 mg PO DAILY 07/28/22 09/14/22 20 mg 24hr capsule,extend release (Adderall XR) guanfacine 2 mg tablet 2 mg PO DAILY 07/28/22 09/14/22 lamotrigine 25 mg tablet 25 mg PO ONCE 07/28/22 09/14/22 Previous Rx's Medication Instructions Recorded paroxetine HCl 10 mg tablet (Paxil) 10 mg PO DAILY #90 tabs 02/11/21 medroxyprogesterone 10 mg tablet 10 mg PO DAILY #100 tabs 07/22/22 (Provera) norethindrone acetate 1.5 1 tab PO .COMPLEX #42 tabs 08/10/22 mg-ethinyl estradiol 30 mcg tablet (Loestrin) amoxicillin 875 mg-potassium 1 tab PO Q12H #20 tabs 08/15/23 clavulanate 125 mg tablet benzonatate 200 mg capsule 200 mg PO BID PRN cough #20 caps 08/15/23 Allergies Allergy/AdvReac Type Severity Reaction Status Date / Time oxycodone AdvReac Intermediate itching Verified 05/16/23 08:10 Review of Systems Review of Systems Narrative: GENERAL: Denies chills, fatigue, malaise, fever, sweats. HEENT: Denies sinus pain, ear pain, sore throat, difficulty swallowing, dizziness. RESPIRATORY: See HPI CARDIOVASCULAR: Denies chest pain, palpitations, orthopnea, edema, GASTROINTESTINAL: Denies nausea, vomiting, abdominal pain, diarrhea, constipation, melena. : Denies dysuria, frequency, incontinence, hematuria, urinary retention. MUSCULOSKELETAL: denies weakness, joint pain, or bony pain SKIN: Denies rash, skin lesions, or other NEUROLOGIC: Denies weakness, headache, numbness, change in speech, confusion, seizures, incoordination. PSYCHIATRIC: No concerning psychosocial issues. 12 point review of systems is negative except for those stated above Patient History Medical History URI (upper respiratory infection) Dysuria Skin change Family history of thyroid disease Fatigue Lymphadenopathy Plantar warts (~2008) Depression (~2013) Anxiety (~2013) Foot pain (~2017) Generalized anxiety disorder IBS (irritable bowel syndrome) PCOS (polycystic ovarian syndrome) Surgical History Anesthesia History of appendectomy (~2008) Family History Father Hypertension Mental health problem Mother Mental health problem Breast cancer Sister Mental health problem Social History Smoking Status: Current every day smoker second hand exposure: Yes (childhood) alcohol intake: never substance use type: does not use Smoking Status: Current every day smoker tobacco type: vaping alcohol intake frequency: 0-2 drinks per day Substance Use Type: marijuana Exam Narrative Exam Narrative: GENERAL: [23] year old patient appears stated age. Well-developed patient, in mild distress. HEAD: Atraumatic. Normocephalic. EYES: Pupils equal round and reactive. Extraocular motions intact. No scleral icterus. No injection or drainage. ENT: Nose without bleeding, purulent drainage. Throat without erythema, tonsillar hypertrophy or exudate. Airway patent. NECK: Trachea midline. Non tender CARDIOVASCULAR: Regular rate and rhythm without murmurs, gallops, or rubs. RESPIRATORY: Faint crackles in left base greater than right, no use of accessory muscles or hypoxemia GASTROINTESTINAL: Abdomen soft, non-tender, nondistended. EXTREMITIES: No edema or joint tenderness. BACK: Nontender without deformity or crepitance. No flank tenderness. NEURO: AOx3. SKIN: No rash or erythema of visible areas Initial Vital Signs Initial Vital Signs: Vital Signs Temperature 99.2 F 08/15/23 20:14 Pulse Rate 112 H 08/15/23 20:14 Respiratory Rate 20 08/15/23 20:14 Blood Pressure 130/70 08/15/23 20:14 Pulse Oximetry 100 08/15/23 20:14 Oxygen Delivery Method Room Air 08/15/23 20:14 Course Orders Ordered: ED Orders 08/15/23 20:19 EKG-12 Lead Stat 08/15/23 20:20 COVID19 -Nasal RAPID Stat 08/15/23 20:42 Covid-19 + FLU A/B + RSV - PCR Stat 08/15/23 20:52 Complete Blood Count AUTO DIFF Stat Comprehensive Metabolic Panel Stat D Dimer Stat Magnesium Stat NT-proBNP (BNP-Adult 18+) Stat Procalcitonin Stat Troponin & CK Cardiac Panel Stat 08/15/23 21:11 Chest [XR chest 2V] Stat Discontinued Medications Amoxicillin/Clavulanate Potassium (Amoxicillin/Clav 875/125 Mg) 1 tab PO NOW ONE Stop: 08/15/23 22:49 Last Admin: 08/15/23 23:00 Dose: 1 tab Documented By: SANDY Sodium Chloride (Normal Saline 0.9%) 1,000 mls @ 1,000 mls/hr IV BOLUS ONE Stop: 08/15/23 22:30 Last Infusion: 08/15/23 23:00 Dose: Infused Documented By: Admin: 08/15/23 21:50 Dose: 1,000 mls/hr Documented By: SANDY Vital Signs Vital signs: Vital Signs - 8 hr 08/15/23 20:14 08/15/23 20:31 08/15/23 22:20 Temperature 99.2 F 98.9 F Pulse Rate 112 H 104 H 97 H Respiratory Rate 20 22 18 Blood Pressure 130/70 128/73 106/66 Pulse Oximetry 100 98 97 Oxygen Delivery Method Room Air Room Air Room Air 08/15/23 23:05 Temperature 99 F Pulse Rate 94 H Respiratory Rate 18 Blood Pressure 110/75 Pulse Oximetry 99 Oxygen Delivery Method MDM - Chest Pain Lab Data 08/15/23 20:52 08/15/23 20:52 Labs: Lab Results 08/15/23 08/15/23 08/15/23 Range/Units 20:20 20:42 20:52 WBC 18.0 H (4.5-11.0) X10^3/uL RBC 3.88 L (4.0-5.2) X10^6/uL Hgb 11.1 L (12.0-16.0) g/dL Hct 32.5 L (36-46) % MCV 83.8 (80-100) fL MCH 28.7 (26-34) PG MCHC 34.3 (30-36) % RDW 13.2 (11.6-14.8) % Plt Count 498 H (150-400) X10^3/uL Neut % (Auto) 84.0 H (50-75) % Lymph % (Auto) 9.3 L (25-40) % [place] % (Auto) 5.9 (3-14) % Eos % (Auto) 0.1 L (2-4) % Baso % (Auto) 0.7 (0-2) % Neut # (Auto) 26108 H (6538-8369) /uL Lymph # (Auto) 1700 (3284-1277) /uL [place] # (Auto) 1100 H (0-900) /uL Eos # (Auto) 0 (0-450) /uL Baso # (Auto) 100 (0-100) /uL D-Dimer 256 (<500) ng/ml Sodium 136 L (137-145) mmol/L Potassium 3.8 (3.4-5.1) mmol/L Chloride 99 (98-107) mmol/L Carbon Dioxide 25 (22-32) mmol/L BUN 7 (7-17) mg/dL Creatinine 0.58 (0.52-1.04) mg/dL Estimated GFR > 60 (>60) mL/min BUN/Creatinine Ratio 12.1 (6-22) Glucose 94 (70-100) mg/dL Calcium 9.1 (8.4-10.2) mg/dL Magnesium 1.7 (1.6-2.3) mg/dL Total Bilirubin 0.8 (0.2-1.3) mg/dL AST 27 (14-36) IU/L ALT 23 (<35) IU/L Alkaline Phosphatase 44 (38-126) U/L Total Creatine Kinase 39 (30-135) U/L Troponin I < 0.012 (0.01-0.034) ng/mL NT-Pro-B Natriuret Pep 73 (<125) pg/mL Total Protein 7.2 (6.3-8.2) g/dL Albumin 4.0 (3.5-5.0) g/dL Globulin 3.2 (1.7-4.1) g/dL Albumin/Globulin Ratio 1.3 (1.0-2.8) Procalcitonin 0.08 (<0.5) ng/mL SARS-CoV-2 (PCR) Negative Negative (Negative) Influenza A (RT-PCR) Flu a negative (NEGATIVE) Influenza B (RT-PCR) Flu b negative (NEGATIVE) RSV (PCR) Negative (Negative) Point of Care Testing Test Results Negative Urine Dip Bedside Urine Glucose Negative Bedside Urine Bilirubin - Negative Bedside Urine Ketone +/- 5 Urine Specific [place] 1.010 Bedside Urine Occult Blood - Negative Bedside Urine pH 6.0 Bedside Urine Urobilinogen - Negative Bedside Urine Nitrite - Negative Bedside Urine Leukocytes - Negative Esterase MDM Narrative Medical decision making narrative: [23] year old patient presents with cough and pleuritic chest pain Multiple etiologies for patient's symptoms considered including, but not limited to: [Pulmonary embolism versus flu versus COVID versus pneumonia versus other] Prior Charts reviewed in our EMR Primary Historian: patient Labs reviewed and interpreted by myself: Leukocytosis with left shift, D-dimer 256, well below cutoff, procalcitonin 0.08, troponin less than 0.012 Imaging reviewed: Chest x-ray demonstrates left lower lobe pneumonia Patient's history and physical exam reassuring, she is had cough, subjective fever and pleuritic-type chest pain. Multiple diagnoses considered as noted above, pulmonary embolism thought unlikely given D-dimer well below cutoff. She does have chest x-ray suggesting pneumonia and leukocytosis with left shift. Most consistent with community-acquired pneumonia. Thankfully she does not have significant work of breathing or evidence of hypoxemia, no indication for admission Patient's symptoms improved over duration of stay with above-stated therapies. Findings and discharge diagnosis discussed with patient/family followed by verbalization of understanding Return precautions discussed with patient/family whom verbalize understanding of diagnosis and plan Discharge Plan Departure Patient Disposition: Home Clinical Impression: Pneumonia Instructions: DI for Pneumonia -- Adult Activity Restrictions/Additional Instructions: *You have been diagnosed with [left lower lobe pneumonia] *What to do: *Please continue to take your regular medications as directed. [ x] New medication prescriptions sent to your pharmacy: [ [facility]] [ ] New medication written as a paper prescription [ ] No new medications given *Please follow up with your primary care provider in 2-3 days, call for an appointment. Let them know you were seen in the Emergency Department and that we ask that you be seen in follow up. We will electronically transmit a record of today's note if your PCP is in our system *Return to Emergency Department if you should have any new, worsening or concerning symptoms, such as [fever greater than 101 F, shaking chills, worsening pain, persistent vomiting or other bothersome symptoms] Prescriptions: New benzonatate 200 mg capsule 200 mg PO BID PRN (Reason: cough) Qty: 20 0RF amoxicillin-pot clavulanate 875-125 mg tablet 1 tab PO Q12H Qty: 20 0RF No Action paroxetine HCl [Paxil] 10 mg tablet 10 mg PO DAILY Qty: 90 1RF medroxyprogesterone [Provera] 10 mg tablet 10 mg PO DAILY Qty: 100 1RF Hold Instructions: change therapeutic plan Rx Instructions: 2 tabs PO Q2hr until bleeding stops, [id number], [id number], [id number], [id number], [id number] norethindrone ac-eth estradiol [Loestrin 1.5/30 (21)] 1.5-30 mg-mcg tablet 1 tab PO .COMPLEX Qty: 42 0RF Rx Instructions: 1 tab orally BID x 5 days then daily; lamotrigine 25 mg tablet 25 mg PO ONCE guanfacine 2 mg tablet 2 mg PO DAILY dextroamphetamine-amphetamine [Adderall XR] 20 mg capsule,extended release 24hr 20 mg PO DAILY Referrals: Katy Ramirez ARNP [Primary Care Provider] - Stand Alone Forms: Patient Portal/API
[2023-08-15 20:57] LABS: COVID19 -Nasal RAPID Negative (Negative)
[2023-08-15 21:03] LABS: Add Manual Diff / Slide Review NO; Basophils Absolute Auto 100 /uL (0-100); Basophils Percent Auto 0.7 % (0-2); Eosinophils Absolute Auto 0 /uL (0-450); Eosinophils Percent Auto 0.1 % (2-4); Hematocrit 32.5 % (36-46); Hemoglobin 11.1 g/dL (12.0-16.0); Lymphocytes Absolute Auto 1700 /uL (1100-4500); Lymphocytes Percent Auto 9.3 % (25-40); Mean Corpuscular HGB Conc 34.3 % (30-36); Mean Corpuscular Hemoglobin 28.7 PG (26-34); Mean Corpuscular Volume 83.8 fL (80-100); Monocytes Absolute Auto 1100 /uL (0-900); Monocytes Percent Auto 5.9 % (3-14); Neutrophils Absolute Auto 15100 /uL (1500-7000); Platelet Count 498 X10^3/uL (150-400); Red Blood Cell Count 3.88 X10^6/uL (4.0-5.2); Red Cell Distribution Width 13.2 % (11.6-14.8)
--- NOTE | 2023-08-15 21:11 | DI.RAD.S_ITS ---
PROCEDURE: XR CHEST 2V INDICATIONS: chest pain, shortness of breath, cough TECHNIQUE: 2 views of the chest were acquired. COMPARISON: None. FINDINGS: Surgical changes and devices: None. Lungs and pleura: Nonspecific nodular opacity projects over the left lower lung. No pleural effusion or pneumothorax Mediastinum: Mediastinal contours are normal. Heart size is normal. Bones and chest wall: No suspicious bony abnormalities. Soft tissues appear unremarkable. IMPRESSION: Nonspecific nodular/consolidative opacity projects over the left lower lung, could represent a region of airspace disease such as pneumonia, other etiologies not excluded. Dictated by: Dylon Fish M.D. on 08/15/2023 at 22:40 Approved by: Dylon Fish M.D. on 08/15/2023 at 22:44
[2023-08-15 21:25] LABS: D Dimer 256 ng/ml (<500)
[2023-08-15 21:31] LABS: Alanine Aminotransferase 23 IU/L (<35); Albumin Globulin Ratio 1.3 (1.0-2.8); Alkaline Phosphatase 44 U/L (38-126); Aspartate Aminotransferase 27 IU/L (14-36); BUN Creatinine Ratio 12.1 (6-22); Bilirubin Total 0.8 mg/dL (0.2-1.3); Blood Urea Nitrogen 7 mg/dL (7-17); Calcium 9.1 mg/dL (8.4-10.2); Carbon Dioxide 25 mmol/L (22-32); Chloride 99 mmol/L (98-107); Estimated Glomerular Filt Rate > 60 mL/min (>60); Globulin 3.2 g/dL (1.7-4.1); Glucose 94 mg/dL (70-100); HEMOLYSIS 24 (0-50); Potassium 3.8 mmol/L (3.4-5.1); Sodium 136 mmol/L (137-145); Total Protein 7.2 g/dL (6.3-8.2)
[2023-08-15 21:32] LABS: Creatine Kinase 39 U/L (30-135); Magnesium 1.7 mg/dL (1.6-2.3)
[2023-08-15 21:40] LABS: Influenza A - CEPHEID Flu A NEGATIVE (NEGATIVE); Influenza B - CEPHEID Flu B NEGATIVE (NEGATIVE); Respiratory Syncytial Virus Negative (Negative)
[2023-08-15 21:41] LABS: COVID-19 CEPHEID 4-PLEX PCR Negative (Negative)
[2023-08-15 21:42] LABS: NT-proBNP (BNP-Adult 18+) 73 pg/mL (<125); Troponin I < 0.012 ng/mL (0.01-0.034)
[2023-08-15 21:48] LABS: Procalcitonin 0.08 ng/mL (<0.5)
[2023-08-15] MEDS: SODIUM CHLORIDE 0.9% 1,000 ML 1000 ML IV (21:50)
[2023-08-15 22:20] VITALS: BP 106/66; PULSE 97; RESP 18; O2SAT 97
[2023-08-15] MEDS: AMOXICILLIN/CLAV 875/125 MG 1 TAB PO (23:00)
[2023-08-15 23:05] VITALS: BP 110/75; PULSE 94; RESP 18; TEMP 37.2; O2SAT 99
== END 2023-08-15 23:06 | disposition home or self-care (01) ==
PROVIDERS: Emergency Provider Emergency Medicine; PCP Nurse Practitioner Family
DX: J18.9 Pneumonia, unspecified organism (principal); R05.9 Cough, unspecified; Z20.822 Contact with and (suspected) exposure to COVID-19
CPT/HCPCS: 0241U; 36415; 71046; 80053; 81003; 81025; 82550; 83735; 83880; 84145; 84484; 85025; 85379; 87635; 93005; 93010; 99284; C9803

== ENCOUNTER → 2023-08-25 11:22 | Outpatient (CLI) | payer OTHER, SELFPAY ==
--- NOTE | 2023-08-25 | DI.CT.S_ITS ---
PROCEDURE: CT SINUS SCREEN WO CON INDICATIONS: sinusitis TECHNIQUE: Noncontrast 3.0 mm axial images acquired from the frontal sinuses to the mid-sella, with coronal and sagittal reformats. For radiation dose reduction, the following was used: automated exposure control, adjustment of mA and/or kV according to patient size. COMPARISON: None. FINDINGS: Image quality: Excellent. Maxillary Sinuses: At least moderate mucosal thickening can be seen within the maxillary sinuses. The medial ortiz of the maxillary sinuses are demineralized. Ethmoid Air Cells: Scattered [id number] mucosal thickening can be seen within the ethmoid air cells. Several of the ethmoid air cell septations are demineralized. Sphenoid Sinuses: No bony remodeling or destruction. Sinuses are clear. Frontal Sinuses: There is moderate left-sided and mild right-sided mucosal thickening within the frontal sinuses. No definite bony changes are seen. Ostiomeatal Complexes: Ostiomeatal complexes are highly constitutionally narrowed and are further narrowed by soft tissue thickening. No definite Brenda cells are seen. The ostiomeatal complexes are demineralized. Miscellaneous: Visualized intra-orbital contents are normal. There are bilateral silviano bullosa. There is mild rightward nasal septal deviation, with a rightward directed bony nasal septal spur. IMPRESSION: Multifocal paranasal sinus disease is seen, which is worst within the maxillary sinuses. Highly narrowed ostiomeatal complexes. Areas of bony demineralization are seen, which are consistent with chronic sinusitis. Dictated by: Cosme Whitney M.D. on 08/25/2023 at 12:07 Approved by: Cosme Whitney M.D. on 08/25/2023 at 12:09
== END ==
PROVIDERS: Referring Provider Otolaryngology; Visit Provider Otolaryngology
DX: J32.4 Chronic pansinusitis (principal); R51.9 Headache, unspecified
CPT/HCPCS: 70486